=== PATIENT | female | born 1950 | race African-American/Black ===

== ENCOUNTER → 2017-05-09 | Day surgery (SDC) | payer MEDICARE ==
[~2017-05-09] MED LIST: DEXAMETHASONE SOD PHOS 4 MG/ML VIAL ONE; EPINEPHrine HCL (1:1000) 1 MG/ML VIAL ONE; MIDAZOLAM HCL 2 MG/2 ML VIAL ONE; MOXIFLOXACIN 0.5% OPHT SOLN 3 ML BTL ONE; ONDANSETRON HCL 4 MG/2 ML VIAL IV PUSH ONE; PHENYLEPHRINE HCL 10% OPTH SOLN 5 ML BTL ONE; PROPOFOL 200 MG/20 ML AMP IV ONE; SODIUM CHLOR 0.9% 1000 ML BAG IV ONE; SODIUM CHLORIDE 0.9% INJ 10 ML ONE; TETRACAINE 0.5% OPTH SOLN 4 ML BTL ONE; TOBRAMYCIN/DEXAMETHASONE OPTH OINT 3.5 GM TUBE ONE; ceFAZolin INJ 1,000 MG VIAL ONE; prednisoLONE ACETATE 1% OPHT SUSP 5 ML BTL ONE
--- NOTE | 2017-05-11 16:54 | MP ---
cc: KYLE ALVARADO DATE OF SURGERY 05/11/17 PREOPERATIVE DIAGNOSIS Full-thickness macular hole left eye. POSTOPERATIVE DIAGNOSIS Full-thickness macular hole left eye. PROCEDURE Pars plana vitrectomy and removal of internal limiting membrane, macular hole closure, air-fluid exchange, insertion of 18% SF6 gas, endolaser, left eye. COMPLICATIONS None BLOOD LOSS Less than [address] Morales, general INDICATIONS FOR PROCEDURE This is a delightful patient with a full-thickness macular hole of her left eye. The patient reports it has been present for at least 2 months. The patient elected for surgical repair understanding the visual defect likely will remain due to the chronicity. PROCEDURE IN DETAIL After informed consent was obtained, the patient was brought to operating room, general anesthesia was established. The left eye was prepped and draped in sterile fashion with Betadine in the conjunctival fornix. A three port pars plana vitrectomy was established with a self-retaining infusion cannula. Core vitreous was evacuated and vitreous traction relieved. The ILM was highlighted with ICG and removed with ILM forceps. Scleral examination revealed impending retinal hole which was treated with endolaser. Air-fluid exchange was carried out and macular hole noted to close. Trocars were removed and sclerotomies closed. Subconjunctival injection of Ancef dexamethasone were given. The eye was patched with Tobramycin ointment. The patient brought to recovery room in stable condition to continue followup with [facility] for her postoperative care. MD FAUSTINA Lopez/ /1:23 PM /4:34 PM
== END | disposition home or self-care (01) ==
LOC: ESDC 06:43
PROVIDERS: ATTEND Ophthalmology
DX: H35.342 Macular cyst, hole, or pseudohole, left eye (principal)
CPT/HCPCS: 00145; 67043; J0171; J0690; J1100; J2250; J2405; J3010; J7030